=== PATIENT | male | born 1985 | race Caucasian/White ===

== ENCOUNTER 2022-03-23 09:03 | Emergency (ER) | payer OTHER ==
[~2022-03-23] VITALS: Ht 170.2 cm; Wt 78.0 kg
[2022-03-23 09:12] VITALS: BP 132/80
[2022-03-23] MEDS ORDERED: OXYCODONE HCL/ACETAMINOPHEN 5/325MG TABLET PO ONE (09:30)
[2022-03-23] MEDS ORDERED: ACETAMINOPHEN 325MG TABLET PO ONE (09:45)
[2022-03-23] MEDS ORDERED: TOPUD PO (11:43)
== END 2022-03-23 11:58 | disposition home or self-care (01) ==
LOC: ER 09:03
DX: R51.9 Headache, unspecified (principal); M54.2 Cervicalgia; V53.6XXA Passenger in pick-up truck or van injured in collision with car, pick-up truck or van in traffic accident, initial encounter; Y93.89 Activity, other specified; Y92.488 Other paved roadways as the place of occurrence of the external cause
CPT/HCPCS: 99284